=== PATIENT | male | born 1970 | race Caucasian/White ===

== ENCOUNTER 2021-12-24 18:55 | Inpatient (IN) | payer MEDICAID ==
[~2021-12-24] VITALS: Ht 180.3 cm; Wt 89.8 kg
[~2021-12-24 18:55] MED LIST: ACET-2619 GT; AMIO200T66 GT; BACL10TA4 GT; FERR75LI22 GT; KEP500L GT; LANS15EC28 GT; LEVALBUTEROL; LEVO750T75 PO; LORA-476 GT; MEDI30SO GT; MONT10TA35 GT; OLAN15TA1 GT; PRO5 GT; PROC4I SUBQ; PUL.5N IH; ROB1 GT; VITAMIN C GT; lactobacillus GT
[2021-12-24 19:02] VITALS: BP 109/68
[2021-12-24] MEDS ORDERED: NACL 0.9% 2,000 ML IV ONE (19:10)
[2021-12-24] MEDS ORDERED: ZINC100T8 GT (19:29)
[2021-12-24] MEDS ORDERED: NUTR-480 GT (19:29)
[2021-12-24] MEDS ORDERED: [UNRECOGNIZED DRUG - CODE] GT (19:29)
[2021-12-24] MEDS ORDERED: [UNRECOGNIZED DRUG - CODE] GT ×2 (19:39)
[2021-12-24 19:46] LABS: HEMATOCRIT 24.3 % (36-52); HEMOGLOBIN 7.6 g/dL (12.0-18.0); MEAN CORPUSCULAR HEMOGLOBIN 24 pg (27-31); MEAN CORPUSCULAR HGB CONC 31 g/dL (33-37); MEAN CORPUSCULAR VOLUME 78.4 fL (80-94); PLATELET COUNT (AUTO) 749 K/uL (140-450); RED CELL DISTRIBUTION WIDTH 21.7 % (11.6-13.7)
[2021-12-24] MEDS ORDERED: CEFEPIME 1,000 MG in DEXTROSE 5% 50 ML IV ONE (20:00)
[2021-12-24] MEDS ORDERED: VANCOMYCIN 1,000 MG in DEXTROSE 5% 250 ML IV ONE (20:00)
[2021-12-24 20:04] LABS: WHITE BLOOD COUNT (AUTO) 28.1 K/uL (4.8-10.8)
[2021-12-24 20:33] LABS: ALBUMIN 1.3 g/dL (3.4-5.0); ANION GAP 7.9 (8-16); ASPARTATE AMINOTRANSFERASE 16 U/L (15-37); CARBON DIOXIDE 34.7 mmol/L (21-32); CHLORIDE 100 mmol/L (98-107); CREATININE 0.5 mg/dL (0.6-1.3); GFR ARICAN-AMERICAN 225 mL/min (>90); GLUCOSE 131 mg/dL (74-106); POTASSIUM 3.6 mmol/L (3.5-5.1); SODIUM SERUM 139 mmol/L (136-145); TOTAL BILIRUBIN 0.2 mg/dL (0.0-1.0); UREA NITROGEN, BLOOD 23 mg/dL (7-18)
[2021-12-24] MEDS ORDERED: CEFEPIME 1,000 MG VIAL ONE (20:41)
[2021-12-24] MEDS ORDERED: VANCOMYCIN 1,000 MG VIAL ONE (20:42)
[2021-12-24 20:50] LABS: EOSINOPHILS % (MANUAL) 1 % (0-4); LYMPHOCYTES % (MANUAL) 7 % (20-46); METAMYELOCYTES % 1 % (0-0); MONOCYTES % (MANUAL) 3 % (5-12)
[2021-12-24 20:59] LABS: BILIRUBIN,URINE NEGATIVE (NEGATIVE); BLOOD, URINE TRACE-I (NEGATIVE); COLOR,URINE YELLOW (YELLOW); LEUKOCYTE ESTERASE ,URINE TRACE (NEGATIVE); NITRITE, URINE NEGATIVE (NEGATIVE); PH,URINE 6.5 (5.0-9.0); UGLUCOSE NEGATIVE (NEGATIVE)
[2021-12-24 21:03] LABS: APPEARANCE,URINE HAZY (CLEAR)
[2021-12-24 21:26] LABS: CALCIUM OXALATE CRYSTALS,UR 0-10 /HPF (None Seen); COARSE GRANULAR CASTS,URINE 0-10 /LPF (None Seen); WBC,URINE 0-5 /HPF (0-5); YEAST,URINE Moderate /HPF (None Seen)
[2021-12-24 22:53] VITALS: BP 101/60
[2021-12-24] MEDS ORDERED: POTASSIUM CHLORIDE 10 MEQ TABER PO PRN (23:20)
[2021-12-24] MEDS ORDERED: ZOLPIDEM 5 MG TAB PO PRN (23:20)
[2021-12-24] MEDS ORDERED: ONDANSETRON 4 MG/2 ML VIAL IM/IVP PRN (23:20)
[2021-12-24] MEDS ORDERED: guaiFENesin DM 200/20 MG-10 ML 10 ML UDC PO PRN (23:20)
[2021-12-24] MEDS ORDERED: HYDROcodone/APAP 7.5/325 MG 1 TAB PO PRN (23:20)
[2021-12-24] MEDS ORDERED: DOCUSATE SODIUM 100 MG GELCAP PO PRN (23:20)
[2021-12-24] MEDS ORDERED: ALBUTEROL SULFATE/IPRATROPIU 3 ML SOL IH PRN (23:25)
[2021-12-24] MEDS: DEXT 5% /NACL 0.9% 1,000 ML IV SCH (23:28)
[2021-12-25] MEDS ORDERED: PIPERACILLIN/TAZOBACTAM 3.375 GM VIAL IV ONE ×2 (00:30→05:05)
[2021-12-25] MEDS: PIPERACILLIN/TAZOBACTAM 3.375 GM in DEXTROSE 5% 50 ML IV SCH ×4 (00:36→19:19)
[2021-12-25 01:27] LABS: CHOL/HDL RATIO 2.5 (1-4.5); FREE T4 (FREE THYROXINE) 1.08 ng/dL (0.76-1.46); MAGNESIUM 1.8 mg/dL (1.8-2.4); PHOSPHORUS 4.3 mg/dL (2.5-4.9); THYROID STIMULATING HORMONE 2.46 uIU/mL (0.34-3.74)
[2021-12-25 04:00] VITALS: BP 99/62
[2021-12-25] MEDS: DEXT 5% /NACL 0.9% 1,000 ML IV SCH ×3 (06:45→21:35)
[2021-12-25 08:00] VITALS: BP 102/61
[2021-12-25] MEDS: ALBUTEROL SULFATE/IPRATROPIU 3 ML SOL IH SCH ×2 (08:06→19:16)
[2021-12-25] MEDS: AMIODARONE 200 MG TAB GT SCH (09:06)
[2021-12-25] MEDS: levETIRAcetam 100 MG/ML ORASYR GT SCH ×2 (09:07→20:59)
[2021-12-25] MEDS: PANTOPRAZOLE 40 MG TABEC PO SCH (09:07)
[2021-12-25] MEDS: FERROUS SULFATE 300 MG/5 ML UDC GT SCH ×2 (09:07→20:59)
[2021-12-25] MEDS: MIDODRINE 5 MG TAB GT SCH ×3 (09:07→17:33)
[2021-12-25 09:37] LABS: BASOPHILS # (AUTO) 0.1 K/uL (0.00-0.22); MONOCYTES # (AUTO) 1.2 K/uL (0.8-1.0); PLATELET COUNT (AUTO) 694 K/uL (140-450)
[2021-12-25 09:42] LABS: BASOPHILS % (AUTO) 0.5 % (0.0-2.0); EOSINOPHILS # (AUTO) 0.5 K/uL (0-0.4); EOSINOPHILS % (AUTO) 2.2 % (0.0-4.0); HEMATOCRIT 21.8 % (36-52); LYMPHOCYTES # (AUTO) 2.1 K/uL (2.0-11.5); LYMPHOCYTES % (AUTO) 10.3 % (20.5-51.1); MEAN CORPUSCULAR HEMOGLOBIN 24 pg (27-31); MEAN CORPUSCULAR HGB CONC 31 g/dL (33-37); MEAN CORPUSCULAR VOLUME 78.1 fL (80-94); MONOCYTES % (AUTO) 5.7 % (1.7-9.3); NEUTROPHILS # (AUTO) 16.7 K/uL (1.8-7.7); NEUTROPHILS % (AUTO) 81.3 % (42.2-75.2); RED BLOOD CELL COUNT(AUTO) 2.79 MIL/uL (4.20-6.10); RED CELL DISTRIBUTION WIDTH 21.9 % (11.6-13.7); WHITE BLOOD COUNT (AUTO) 20.5 K/uL (4.8-10.8)
[2021-12-25 10:04] LABS: ALBUMIN 1.1 g/dL (3.4-5.0); ANION GAP 5.6 (8-16); CARBON DIOXIDE 35.7 mmol/L (21-32); CREATININE 0.3 mg/dL (0.6-1.3); POTASSIUM 3.3 mmol/L (3.5-5.1); TOTAL BILIRUBIN 0.2 mg/dL (0.0-1.0)
[2021-12-25 10:47] LABS: HEMOGLOBIN 6.8 g/dL (12.0-18.0)
[2021-12-25] MEDS ORDERED: POTASSIUM CHLORIDE 20% 40 MEQ/15 ML UDC GT PRN (11:00)
[2021-12-25 12:00] VITALS: BP 100/59
[2021-12-25 16:00] VITALS: BP 103/57
[2021-12-25 20:00] VITALS: BP 100/60
[2021-12-25] MEDS: MONTELUKAST SODIUM 10 MG TAB GT SCH (21:00)
[2021-12-25 21:10] LABS: BASOPHILS # (AUTO) 0.1 K/uL (0.00-0.22); BASOPHILS % (AUTO) 0.6 % (0.0-2.0); EOSINOPHILS # (AUTO) 0.4 K/uL (0-0.4); EOSINOPHILS % (AUTO) 2.1 % (0.0-4.0); HEMATOCRIT 25.3 % (36-52); LYMPHOCYTES # (AUTO) 1.6 K/uL (2.0-11.5); LYMPHOCYTES % (AUTO) 9.2 % (20.5-51.1); MEAN CORPUSCULAR HEMOGLOBIN 25 pg (27-31); MEAN CORPUSCULAR HGB CONC 32 g/dL (33-37); MEAN CORPUSCULAR VOLUME 79.6 fL (80-94); NEUTROPHILS # (AUTO) 14.1 K/uL (1.8-7.7); NEUTROPHILS % (AUTO) 82.1 % (42.2-75.2); PLATELET COUNT (AUTO) 701 K/uL (140-450); RED BLOOD CELL COUNT(AUTO) 3.18 MIL/uL (4.20-6.10); RED CELL DISTRIBUTION WIDTH 21.6 % (11.6-13.7); WHITE BLOOD COUNT (AUTO) 17.2 K/uL (4.8-10.8)
[2021-12-26] VITALS: BP 111/65
[2021-12-26] MEDS: PIPERACILLIN/TAZOBACTAM 3.375 GM in DEXTROSE 5% 50 ML IV SCH ×5 (00:30→23:56)
[2021-12-26] MEDS: DEXT 5% /NACL 0.9% 1,000 ML IV SCH ×3 (02:26→19:50)
[2021-12-26 04:00] VITALS: BP 100/60
[2021-12-26] MEDS: LORazepam 1 MG TAB GT PRN ×2 (05:09→17:29)
[2021-12-26 06:55] LABS: ANION GAP 7.3 (8-16); CARBON DIOXIDE 32.3 mmol/L (21-32); CREATININE 0.4 mg/dL (0.6-1.3); POTASSIUM 3.6 mmol/L (3.5-5.1)
[2021-12-26 07:28] LABS: BASOPHILS # (AUTO) 0.1 K/uL (0.00-0.22); BASOPHILS % (AUTO) 0.8 % (0.0-2.0); EOSINOPHILS # (AUTO) 0.3 K/uL (0-0.4); EOSINOPHILS % (AUTO) 2.1 % (0.0-4.0); HEMATOCRIT 24.3 % (36-52); HEMOGLOBIN 7.7 g/dL (12.0-18.0); LYMPHOCYTES % (AUTO) 12.9 % (20.5-51.1); MEAN CORPUSCULAR HEMOGLOBIN 26 pg (27-31); MEAN CORPUSCULAR HGB CONC 32 g/dL (33-37); MEAN CORPUSCULAR VOLUME 80.8 fL (80-94); MONOCYTES % (AUTO) 6.4 % (1.7-9.3); NEUTROPHILS # (AUTO) 12.1 K/uL (1.8-7.7); NEUTROPHILS % (AUTO) 77.8 % (42.2-75.2); PLATELET COUNT (AUTO) 685 K/uL (140-450); RED BLOOD CELL COUNT(AUTO) 3.01 MIL/uL (4.20-6.10); RED CELL DISTRIBUTION WIDTH 22.4 % (11.6-13.7); WHITE BLOOD COUNT (AUTO) 15.5 K/uL (4.8-10.8)
[2021-12-26 08:00] VITALS: BP 109/63
[2021-12-26] MEDS: levETIRAcetam 100 MG/ML ORASYR GT SCH ×2 (09:02→21:17)
[2021-12-26] MEDS: FERROUS SULFATE 300 MG/5 ML UDC GT SCH ×2 (09:02→21:17)
[2021-12-26] MEDS: AMIODARONE 200 MG TAB GT SCH (09:03)
[2021-12-26] MEDS: MIDODRINE 5 MG TAB GT SCH ×3 (09:03→17:17)
[2021-12-26] MEDS: PANTOPRAZOLE 40 MG TABEC PO SCH (09:03)
[2021-12-26] MEDS ORDERED: VANCOMYCIN PER PHARMACY MC PRN (10:30)
[2021-12-26] MEDS ORDERED: ALGINATE DRESSING MC PRN (11:30)
[2021-12-26] MEDS ORDERED: FOAM DRESSING TP PRN (11:30)
[2021-12-26 12:00] VITALS: BP 105/68
[2021-12-26] MEDS: HYDRAGUARD CREAM TP SCH (12:30)
[2021-12-26] MEDS: ALBUTEROL SULFATE/IPRATROPIU 3 ML SOL IH SCH ×3 (13:00→23:54)
[2021-12-26] MEDS: VANCOMYCIN 1,000 MG in DEXTROSE 5% 250 ML IV SCH ×2 (13:22→21:18)
[2021-12-26 16:00] VITALS: BP 101/64
[2021-12-26 20:00] VITALS: BP 96/60
[2021-12-26] MEDS: MONTELUKAST SODIUM 10 MG TAB GT SCH (21:18)
[2021-12-26] MEDS: DEXT 5% / NACL 0.9% 1,000 ML IV SCH (22:31)
[2021-12-27] VITALS: BP 103/43
[2021-12-27] MEDS: HYDRAGUARD CREAM TP SCH ×2 (00:14→12:57)
[2021-12-27 04:00] VITALS: BP 100/48
[2021-12-27] MEDS: VANCOMYCIN 1,000 MG in DEXTROSE 5% 250 ML IV SCH (04:29)
[2021-12-27] MEDS: DEXT 5% / NACL 0.9% 1,000 ML IV SCH (04:53)
[2021-12-27] MEDS: PIPERACILLIN/TAZOBACTAM 3.375 GM in DEXTROSE 5% 50 ML IV SCH ×4 (06:16→23:34)
[2021-12-27 06:56] LABS: BASOPHILS # (AUTO) 0.1 K/uL (0.00-0.22); BASOPHILS % (AUTO) 0.8 % (0.0-2.0); EOSINOPHILS # (AUTO) 0.8 K/uL (0-0.4); EOSINOPHILS % (AUTO) 5.9 % (0.0-4.0); HEMATOCRIT 22.9 % (36-52); HEMOGLOBIN 7.3 g/dL (12.0-18.0); LYMPHOCYTES # (AUTO) 1.7 K/uL (2.0-11.5); LYMPHOCYTES % (AUTO) 13.2 % (20.5-51.1); MEAN CORPUSCULAR HEMOGLOBIN 26 pg (27-31); MEAN CORPUSCULAR HGB CONC 32 g/dL (33-37); MEAN CORPUSCULAR VOLUME 80.4 fL (80-94); MONOCYTES # (AUTO) 0.8 K/uL (0.8-1.0); MONOCYTES % (AUTO) 6.5 % (1.7-9.3); NEUTROPHILS # (AUTO) 9.4 K/uL (1.8-7.7); NEUTROPHILS % (AUTO) 73.6 % (42.2-75.2); PLATELET COUNT (AUTO) 648 K/uL (140-450); RED BLOOD CELL COUNT(AUTO) 2.85 MIL/uL (4.20-6.10); RED CELL DISTRIBUTION WIDTH 22.3 % (11.6-13.7); WHITE BLOOD COUNT (AUTO) 12.8 K/uL (4.8-10.8)
[2021-12-27 07:07] LABS: ANION GAP 5.8 (8-16); CARBON DIOXIDE 33.9 mmol/L (21-32); CREATININE 0.3 mg/dL (0.6-1.3); POTASSIUM 3.7 mmol/L (3.5-5.1)
[2021-12-27] MEDS: ALBUTEROL SULFATE/IPRATROPIU 3 ML SOL IH SCH ×3 (07:50→19:14)
[2021-12-27 08:00] VITALS: BP 94/53
[2021-12-27] MEDS: FERROUS SULFATE 300 MG/5 ML UDC GT SCH ×2 (09:22→20:31)
[2021-12-27] MEDS: PANTOPRAZOLE 40 MG TABEC PO SCH (09:23)
[2021-12-27] MEDS: MIDODRINE 5 MG TAB GT SCH ×3 (09:23→17:28)
[2021-12-27] MEDS: levETIRAcetam 100 MG/ML ORASYR GT SCH ×2 (09:23→20:32)
[2021-12-27] MEDS: AMIODARONE 200 MG TAB GT SCH (09:29)
[2021-12-27] MEDS ORDERED: FUROSEMIDE 20 MG/2 ML VIAL IVP SCH (10:30)
[2021-12-27 12:00] VITALS: BP 109/57
[2021-12-27] MEDS: LORazepam 1 MG TAB GT PRN (14:23)
[2021-12-27 16:00] VITALS: BP 102/60
[2021-12-27] MEDS: FLUCONAZOLE 100 MG/NS PREMIX 50 ML IV SCH (17:28)
[2021-12-27 20:00] VITALS: BP 109/55
[2021-12-27] MEDS: MONTELUKAST SODIUM 10 MG TAB GT SCH (20:32)
[2021-12-27] MEDS: VANCOMYCIN HCL 1.25 GM in DEXTROSE 5% 250 ML IV SCH (20:33)
[2021-12-27] MEDS: ACETAMINOPHEN 325 MG TAB PO PRN (20:34)
[2021-12-28] VITALS (9 sets, daily range): BP systolic 100–119; BP diastolic 60–77
[2021-12-28] MEDS: HYDRAGUARD CREAM TP SCH ×2 (00:19→12:56)
[2021-12-28] MEDS: PIPERACILLIN/TAZOBACTAM 3.375 GM in DEXTROSE 5% 50 ML IV SCH (05:30)
[2021-12-28] MEDS: ACETAMINOPHEN 325 MG TAB PO PRN ×2 (06:04→15:22)
[2021-12-28 06:58] LABS: ANION GAP 7.6 (8-16); CARBON DIOXIDE 36.1 mmol/L (21-32); CREATININE 0.4 mg/dL (0.6-1.3); POTASSIUM 3.7 mmol/L (3.5-5.1)
[2021-12-28 07:16] LABS: BASOPHILS # (AUTO) 0.1 K/uL (0.00-0.22); BASOPHILS % (AUTO) 0.6 % (0.0-2.0); EOSINOPHILS # (AUTO) 0.3 K/uL (0-0.4); EOSINOPHILS % (AUTO) 1.5 % (0.0-4.0); HEMATOCRIT 24.2 % (36-52); HEMOGLOBIN 7.6 g/dL (12.0-18.0); LYMPHOCYTES # (AUTO) 2.1 K/uL (2.0-11.5); MEAN CORPUSCULAR HEMOGLOBIN 25 pg (27-31); MEAN CORPUSCULAR HGB CONC 32 g/dL (33-37); MEAN CORPUSCULAR VOLUME 79.8 fL (80-94); MONOCYTES # (AUTO) 1.1 K/uL (0.8-1.0); MONOCYTES % (AUTO) 5.3 % (1.7-9.3); NEUTROPHILS # (AUTO) 17.4 K/uL (1.8-7.7); NEUTROPHILS % (AUTO) 82.6 % (42.2-75.2); PLATELET COUNT (AUTO) 686 K/uL (140-450); RED BLOOD CELL COUNT(AUTO) 3.03 MIL/uL (4.20-6.10); RED CELL DISTRIBUTION WIDTH 22.3 % (11.6-13.7)
[2021-12-28] MEDS: ALBUTEROL SULFATE/IPRATROPIU 3 ML SOL IH SCH ×3 (08:00→19:30)
[2021-12-28] MEDS: levETIRAcetam 100 MG/ML ORASYR GT SCH ×2 (08:18→20:31)
[2021-12-28] MEDS: VANCOMYCIN HCL 1.25 GM in DEXTROSE 5% 250 ML IV SCH (08:18)
[2021-12-28] MEDS: FERROUS SULFATE 300 MG/5 ML UDC GT SCH ×2 (08:18→20:30)
[2021-12-28] MEDS: AMIODARONE 200 MG TAB GT SCH (08:19)
[2021-12-28] MEDS: MIDODRINE 5 MG TAB GT SCH ×3 (08:19→18:15)
[2021-12-28] MEDS: PANTOPRAZOLE 40 MG TABEC PO SCH (08:20)
[2021-12-28] MEDS ORDERED: AMIKACIN PER PHARMACY MC PRN (09:20)
[2021-12-28] MEDS ORDERED: AMIKACIN 1,000 MG in DEXTROSE 5% 100 ML IV SCH (11:00)
[2021-12-28] MEDS: LORazepam 1 MG TAB GT PRN (12:56)
[2021-12-28] MEDS: FLUCONAZOLE 100 MG/NS PREMIX 50 ML IV SCH (18:16)
[2021-12-28] MEDS: MONTELUKAST SODIUM 10 MG TAB GT SCH (20:31)
[2021-12-29] VITALS (8 sets, daily range): BP systolic 103–110; BP diastolic 65–72
[2021-12-29] MEDS: HYDRAGUARD CREAM TP SCH ×2 (01:38→13:00)
[2021-12-29 06:49] LABS: BASOPHILS # (AUTO) 0.1 K/uL (0.00-0.22); BASOPHILS % (AUTO) 0.7 % (0.0-2.0); EOSINOPHILS # (AUTO) 0.7 K/uL (0-0.4); HEMATOCRIT 24.7 % (36-52); HEMOGLOBIN 7.8 g/dL (12.0-18.0); LYMPHOCYTES % (AUTO) 11.5 % (20.5-51.1); MEAN CORPUSCULAR HEMOGLOBIN 25 pg (27-31); MEAN CORPUSCULAR HGB CONC 31 g/dL (33-37); MEAN CORPUSCULAR VOLUME 79.3 fL (80-94); MONOCYTES # (AUTO) 0.9 K/uL (0.8-1.0); MONOCYTES % (AUTO) 5.2 % (1.7-9.3); NEUTROPHILS # (AUTO) 13.5 K/uL (1.8-7.7); NEUTROPHILS % (AUTO) 78.6 % (42.2-75.2); PLATELET COUNT (AUTO) 708 K/uL (140-450); RED BLOOD CELL COUNT(AUTO) 3.12 MIL/uL (4.20-6.10); RED CELL DISTRIBUTION WIDTH 22.5 % (11.6-13.7); WHITE BLOOD COUNT (AUTO) 17.2 K/uL (4.8-10.8)
[2021-12-29 06:56] LABS: ANION GAP 6.9 (8-16); CARBON DIOXIDE 36.9 mmol/L (21-32); CREATININE 0.5 mg/dL (0.6-1.3); POTASSIUM 3.8 mmol/L (3.5-5.1)
[2021-12-29] MEDS: ALBUTEROL SULFATE/IPRATROPIU 3 ML SOL IH SCH ×2 (08:10→13:55)
[2021-12-29] MEDS: AMIODARONE 200 MG TAB GT SCH (09:43)
[2021-12-29] MEDS: MIDODRINE 5 MG TAB GT SCH ×3 (09:43→16:32)
[2021-12-29] MEDS: levETIRAcetam 100 MG/ML ORASYR GT SCH ×2 (09:43→20:47)
[2021-12-29] MEDS: FERROUS SULFATE 300 MG/5 ML UDC GT SCH ×2 (09:43→20:47)
[2021-12-29] MEDS ORDERED: ALBUMIN HUMAN 25% 50 ML IV SCH (10:00)
[2021-12-29] MEDS: PANTOPRAZOLE 40 MG INJ VIAL IVP SCH (11:29)
[2021-12-29] MEDS ORDERED: AMIKACIN 1,000 MG in DEXTROSE 5% 100 ML IV SCH (12:00)
[2021-12-29] MEDS: FOAM DRESSING TP SCH (13:00)
[2021-12-29] MEDS: ALGINATE DRESSING MC SCH (13:00)
[2021-12-29] MEDS: FLUCONAZOLE 100 MG/NS PREMIX 50 ML IV SCH (16:32)
[2021-12-29] MEDS: MONTELUKAST SODIUM 10 MG TAB GT SCH (20:47)
[2021-12-30] VITALS: BP 114/68
[2021-12-30] MEDS: HYDRAGUARD CREAM TP SCH ×2 (01:00→13:20)
[2021-12-30 04:00] VITALS: BP 109/66
[2021-12-30] MEDS: ALBUTEROL SULFATE/IPRATROPIU 3 ML SOL IH SCH ×4 (05:22→19:45)
[2021-12-30 06:34] LABS: BASOPHILS # (AUTO) 0.1 K/uL (0.00-0.22); BASOPHILS % (AUTO) 0.8 % (0.0-2.0); EOSINOPHILS # (AUTO) 1.1 K/uL (0-0.4); EOSINOPHILS % (AUTO) 7.6 % (0.0-4.0); HEMATOCRIT 25.9 % (36-52); HEMOGLOBIN 8.3 g/dL (12.0-18.0); LYMPHOCYTES # (AUTO) 2.2 K/uL (2.0-11.5); LYMPHOCYTES % (AUTO) 15.7 % (20.5-51.1); MEAN CORPUSCULAR HEMOGLOBIN 25 pg (27-31); MEAN CORPUSCULAR HGB CONC 32 g/dL (33-37); MEAN CORPUSCULAR VOLUME 79.3 fL (80-94); MONOCYTES # (AUTO) 0.9 K/uL (0.8-1.0); MONOCYTES % (AUTO) 6.3 % (1.7-9.3); NEUTROPHILS # (AUTO) 9.8 K/uL (1.8-7.7); NEUTROPHILS % (AUTO) 69.6 % (42.2-75.2); PLATELET COUNT (AUTO) 663 K/uL (140-450); RED BLOOD CELL COUNT(AUTO) 3.27 MIL/uL (4.20-6.10); RED CELL DISTRIBUTION WIDTH 22.8 % (11.6-13.7); WHITE BLOOD COUNT (AUTO) 14.1 K/uL (4.8-10.8)
[2021-12-30 06:40] LABS: ANION GAP 6.1 (8-16); CARBON DIOXIDE 37.2 mmol/L (21-32); CREATININE 0.5 mg/dL (0.6-1.3); POTASSIUM 4.3 mmol/L (3.5-5.1)
[2021-12-30 08:00] VITALS: BP 106/65
[2021-12-30] MEDS: FERROUS SULFATE 300 MG/5 ML UDC GT SCH ×2 (10:04→22:06)
[2021-12-30] MEDS: levETIRAcetam 100 MG/ML ORASYR GT SCH ×2 (10:04→22:07)
[2021-12-30] MEDS: PANTOPRAZOLE 40 MG INJ VIAL IVP SCH (10:05)
[2021-12-30] MEDS: MIDODRINE 5 MG TAB GT SCH ×3 (10:06→17:27)
[2021-12-30] MEDS: AMIODARONE 200 MG TAB GT SCH (10:07)
[2021-12-30 12:00] VITALS: BP 106/71
[2021-12-30] MEDS: AMIKACIN 1,000 MG in DEXTROSE 5% 100 ML IV SCH (12:51)
[2021-12-30 16:00] VITALS: BP 108/62
[2021-12-30] MEDS: FLUCONAZOLE 100 MG/NS PREMIX 50 ML IV SCH (17:27)
[2021-12-30 20:00] VITALS: BP 113/67
[2021-12-30] MEDS: MONTELUKAST SODIUM 10 MG TAB GT SCH (22:07)
[2021-12-30] MEDS: LORazepam 1 MG TAB GT PRN (23:30)
[2021-12-31] VITALS (9 sets, daily range): BP systolic 100–116; BP diastolic 60–72
[2021-12-31] MEDS: HYDRAGUARD CREAM TP SCH ×2 (01:44→13:05)
[2021-12-31] MEDS: ACETAMINOPHEN 325 MG TAB PO PRN (05:27)
[2021-12-31] MEDS ORDERED: ACETAMINOPHEN 100 ML IV PRN (06:45)
[2021-12-31 07:23] LABS: ANION GAP 8.1 (8-16); CARBON DIOXIDE 36.3 mmol/L (21-32); CREATININE 0.6 mg/dL (0.6-1.3); POTASSIUM 4.4 mmol/L (3.5-5.1)
[2021-12-31 07:31] LABS: HEMATOCRIT 26.4 % (36-52); HEMOGLOBIN 8.4 g/dL (12.0-18.0); MEAN CORPUSCULAR HEMOGLOBIN 25 pg (27-31); MEAN CORPUSCULAR HGB CONC 32 g/dL (33-37); PLATELET COUNT (AUTO) 682 K/uL (140-450); RED BLOOD CELL COUNT(AUTO) 3.34 MIL/uL (4.20-6.10); RED CELL DISTRIBUTION WIDTH 22.9 % (11.6-13.7)
[2021-12-31 08:07] LABS: WHITE BLOOD COUNT (AUTO) 30.7 K/uL (4.8-10.8)
[2021-12-31 08:08] LABS: LYMPHOCYTES % (MANUAL) 10 % (20-46); MONOCYTES % (MANUAL) 5 % (5-12)
[2021-12-31] MEDS: ALBUTEROL SULFATE/IPRATROPIU 3 ML SOL IH SCH ×2 (08:43→14:25)
[2021-12-31] MEDS ORDERED: VANCOMYCIN PER PHARMACY MC PRN (09:05)
[2021-12-31] MEDS: levETIRAcetam 100 MG/ML ORASYR GT SCH ×2 (10:31→21:20)
[2021-12-31] MEDS: FERROUS SULFATE 300 MG/5 ML UDC GT SCH ×2 (10:32→21:20)
[2021-12-31] MEDS: PANTOPRAZOLE 40 MG INJ VIAL IVP SCH (10:34)
[2021-12-31] MEDS: MIDODRINE 5 MG TAB GT SCH ×3 (10:34→17:19)
[2021-12-31] MEDS: AMIODARONE 200 MG TAB GT SCH (10:35)
[2021-12-31] MEDS: VANCOMYCIN HCL 1.25 GM in DEXTROSE 5% 250 ML IV SCH ×2 (10:44→17:23)
[2021-12-31] MEDS ORDERED: VANCOMYCIN 500 MG VIAL PO SCH (12:00)
[2021-12-31] MEDS: AMIKACIN 1,000 MG in DEXTROSE 5% 100 ML IV SCH (12:00)
[2021-12-31 12:39] LABS: APPEARANCE,URINE CLEAR (CLEAR); BILIRUBIN,URINE NEGATIVE (NEGATIVE); BLOOD, URINE 1+ (NEGATIVE); COLOR,URINE YELLOW (YELLOW); LEUKOCYTE ESTERASE ,URINE NEGATIVE (NEGATIVE); NITRITE, URINE NEGATIVE (NEGATIVE); UGLUCOSE NEGATIVE (NEGATIVE)
[2021-12-31 12:51] LABS: OTHER CASTS, URINE None Seen /LPF (None Seen); WBC,URINE 0-5 /HPF (0-5)
[2021-12-31] MEDS: VANCOMYCIN HCL 25 MG/ML SOLN PO SCH ×2 (13:02→17:19)
[2021-12-31] MEDS: FLUCONAZOLE 100 MG/NS PREMIX 50 ML IV SCH (17:20)
[2021-12-31] MEDS: MONTELUKAST SODIUM 10 MG TAB GT SCH (21:20)
[2022-01-01] VITALS: BP 104/82
[2022-01-01] MEDS: HYDRAGUARD CREAM TP SCH ×2 (01:00→16:04)
[2022-01-01] MEDS: VANCOMYCIN HCL 1.25 GM in DEXTROSE 5% 250 ML IV SCH (02:00)
[2022-01-01 04:00] VITALS: BP 106/81
[2022-01-01] MEDS: VANCOMYCIN HCL 25 MG/ML SOLN PO SCH ×5 (06:14→23:48)
[2022-01-01] MEDS: ALBUTEROL SULFATE/IPRATROPIU 3 ML SOL IH SCH ×3 (07:00→19:00)
[2022-01-01 08:00] VITALS: BP 107/65
[2022-01-01 09:51] LABS: ANION GAP 6.3 (8-16); CARBON DIOXIDE 35.7 mmol/L (21-32); CREATININE 0.4 mg/dL (0.6-1.3)
[2022-01-01] MEDS: levETIRAcetam 100 MG/ML ORASYR GT SCH ×2 (11:08→20:48)
[2022-01-01] MEDS: FERROUS SULFATE 300 MG/5 ML UDC GT SCH ×2 (11:09→20:48)
[2022-01-01] MEDS: PANTOPRAZOLE 40 MG INJ VIAL IVP SCH (11:10)
[2022-01-01] MEDS: AMIODARONE 200 MG TAB GT SCH (11:10)
[2022-01-01] MEDS: MIDODRINE 5 MG TAB GT SCH ×3 (11:10→18:54)
[2022-01-01 12:00] VITALS: BP 105/62
[2022-01-01 14:09] LABS: BASOPHILS # (AUTO) 0.2 K/uL (0.00-0.22); EOSINOPHILS % (AUTO) 5.1 % (0.0-4.0); HEMOGLOBIN 7.8 g/dL (12.0-18.0); LYMPHOCYTES # (AUTO) 2.6 K/uL (2.0-11.5); MEAN CORPUSCULAR HEMOGLOBIN 25 pg (27-31); MEAN CORPUSCULAR HGB CONC 32 g/dL (33-37); MEAN CORPUSCULAR VOLUME 78.7 fL (80-94); MONOCYTES % (AUTO) 5.3 % (1.7-9.3); NEUTROPHILS # (AUTO) 14.1 K/uL (1.8-7.7); NEUTROPHILS % (AUTO) 74.6 % (42.2-75.2); PLATELET COUNT (AUTO) 542 K/uL (140-450); RED BLOOD CELL COUNT(AUTO) 3.11 MIL/uL (4.20-6.10); RED CELL DISTRIBUTION WIDTH 22.7 % (11.6-13.7); WHITE BLOOD COUNT (AUTO) 18.9 K/uL (4.8-10.8)
[2022-01-01 16:00] VITALS: BP 106/63
[2022-01-01] MEDS: ALGINATE DRESSING MC SCH (16:04)
[2022-01-01] MEDS: AMIKACIN 1,000 MG in DEXTROSE 5% 100 ML IV SCH (16:06)
[2022-01-01] MEDS: FOAM DRESSING TP SCH (16:07)
[2022-01-01] MEDS: FLUCONAZOLE 100 MG/NS PREMIX 50 ML IV SCH (18:56)
[2022-01-01] MEDS: ACETAMINOPHEN 325 MG TAB PO PRN (19:03)
[2022-01-01 20:00] VITALS: BP 102/61
[2022-01-01] MEDS: MONTELUKAST SODIUM 10 MG TAB GT SCH (20:48)
[2022-01-02] VITALS: BP 100/61
[2022-01-02] MEDS: HYDRAGUARD CREAM TP SCH ×2 (00:03→13:08)
[2022-01-02 04:00] VITALS: BP 99/60
[2022-01-02] MEDS: VANCOMYCIN HCL 25 MG/ML SOLN PO SCH ×3 (05:33→17:54)
[2022-01-02 06:51] LABS: BASOPHILS # (AUTO) 0.2 K/uL (0.00-0.22); BASOPHILS % (AUTO) 1.1 % (0.0-2.0); EOSINOPHILS # (AUTO) 0.9 K/uL (0-0.4); EOSINOPHILS % (AUTO) 6.1 % (0.0-4.0); HEMATOCRIT 25.8 % (36-52); HEMOGLOBIN 8.1 g/dL (12.0-18.0); LYMPHOCYTES # (AUTO) 2.3 K/uL (2.0-11.5); LYMPHOCYTES % (AUTO) 15.3 % (20.5-51.1); MEAN CORPUSCULAR HEMOGLOBIN 25 pg (27-31); MEAN CORPUSCULAR HGB CONC 31 g/dL (33-37); MEAN CORPUSCULAR VOLUME 78.9 fL (80-94); MONOCYTES # (AUTO) 0.8 K/uL (0.8-1.0); MONOCYTES % (AUTO) 5.6 % (1.7-9.3); NEUTROPHILS # (AUTO) 10.7 K/uL (1.8-7.7); NEUTROPHILS % (AUTO) 71.9 % (42.2-75.2); PLATELET COUNT (AUTO) 523 K/uL (140-450); RED BLOOD CELL COUNT(AUTO) 3.27 MIL/uL (4.20-6.10); RED CELL DISTRIBUTION WIDTH 22.4 % (11.6-13.7); WHITE BLOOD COUNT (AUTO) 14.9 K/uL (4.8-10.8)
[2022-01-02 07:12] LABS: ANION GAP 9.4 (8-16); CARBON DIOXIDE 34.9 mmol/L (21-32); CREATININE 0.5 mg/dL (0.6-1.3); POTASSIUM 4.3 mmol/L (3.5-5.1)
[2022-01-02] MEDS: ALBUTEROL SULFATE/IPRATROPIU 3 ML SOL IH SCH ×3 (07:44→19:55)
[2022-01-02 08:00] VITALS: BP 104/66
[2022-01-02] MEDS: PANTOPRAZOLE 40 MG INJ VIAL IVP SCH (09:18)
[2022-01-02] MEDS: FERROUS SULFATE 300 MG/5 ML UDC GT SCH ×2 (09:19→21:58)
[2022-01-02] MEDS: levETIRAcetam 100 MG/ML ORASYR GT SCH ×2 (09:19→21:58)
[2022-01-02] MEDS: AMIODARONE 200 MG TAB GT SCH (09:19)
[2022-01-02] MEDS: MIDODRINE 5 MG TAB GT SCH ×3 (09:19→17:54)
[2022-01-02] MEDS: VANCOMYCIN 1,000 MG in DEXTROSE 5% 250 ML IV SCH ×2 (09:20→21:59)
[2022-01-02 12:00] VITALS: BP 109/68
[2022-01-02] MEDS: AMIKACIN 1,000 MG in DEXTROSE 5% 100 ML IV SCH (12:54)
[2022-01-02 16:00] VITALS: BP 107/66
[2022-01-02] MEDS: FLUCONAZOLE 100 MG/NS PREMIX 50 ML IV SCH (17:54)
[2022-01-02 20:00] VITALS: BP 109/64
[2022-01-02] MEDS: MONTELUKAST SODIUM 10 MG TAB GT SCH (21:58)
[2022-01-03] VITALS: BP 100/60
[2022-01-03] MEDS: VANCOMYCIN HCL 25 MG/ML SOLN PO SCH ×4 (01:00→18:12)
[2022-01-03] MEDS: HYDRAGUARD CREAM TP SCH ×2 (01:00→13:07)
[2022-01-03] MEDS: ACETAMINOPHEN 325 MG TAB PO PRN ×2 (01:09→09:02)
[2022-01-03 04:00] VITALS: BP 106/57
[2022-01-03] MEDS: ALBUTEROL SULFATE/IPRATROPIU 3 ML SOL IH SCH ×3 (07:21→19:15)
[2022-01-03 08:00] VITALS: BP 98/51
[2022-01-03 08:21] LABS: ANION GAP 10.2 (8-16); BASOPHILS # (AUTO) 0.1 K/uL (0.00-0.22); BASOPHILS % (AUTO) 0.5 % (0.0-2.0); CARBON DIOXIDE 32.3 mmol/L (21-32); CREATININE 0.6 mg/dL (0.6-1.3); EOSINOPHILS # (AUTO) 0.8 K/uL (0-0.4); EOSINOPHILS % (AUTO) 2.9 % (0.0-4.0); HEMATOCRIT 25.6 % (36-52); HEMOGLOBIN 8.1 g/dL (12.0-18.0); LYMPHOCYTES # (AUTO) 2.7 K/uL (2.0-11.5); LYMPHOCYTES % (AUTO) 9.4 % (20.5-51.1); MEAN CORPUSCULAR HEMOGLOBIN 25 pg (27-31); MEAN CORPUSCULAR HGB CONC 32 g/dL (33-37); MEAN CORPUSCULAR VOLUME 78.6 fL (80-94); MONOCYTES # (AUTO) 1.2 K/uL (0.8-1.0); MONOCYTES % (AUTO) 4.2 % (1.7-9.3); NEUTROPHILS # (AUTO) 23.6 K/uL (1.8-7.7); PLATELET COUNT (AUTO) 536 K/uL (140-450); POTASSIUM 4.5 mmol/L (3.5-5.1); RED BLOOD CELL COUNT(AUTO) 3.25 MIL/uL (4.20-6.10); RED CELL DISTRIBUTION WIDTH 22.7 % (11.6-13.7)
[2022-01-03 08:27] LABS: WHITE BLOOD COUNT (AUTO) 28.4 K/uL (4.8-10.8)
[2022-01-03] MEDS: levETIRAcetam 100 MG/ML ORASYR GT SCH ×2 (09:00→20:32)
[2022-01-03] MEDS: FERROUS SULFATE 300 MG/5 ML UDC GT SCH ×2 (09:01→20:32)
[2022-01-03] MEDS: MIDODRINE 5 MG TAB GT SCH ×3 (09:01→16:37)
[2022-01-03] MEDS: PANTOPRAZOLE 40 MG INJ VIAL IVP SCH (09:01)
[2022-01-03] MEDS: AMIODARONE 200 MG TAB GT SCH (09:01)
[2022-01-03 12:00] VITALS: BP 107/62
[2022-01-03] MEDS: AMIKACIN 1,000 MG in DEXTROSE 5% 100 ML IV SCH (13:07)
[2022-01-03] MEDS: VANCOMYCIN HCL 1.25 GM in DEXTROSE 5% 250 ML IV SCH (15:00)
[2022-01-03 16:00] VITALS: BP 107/57
[2022-01-03 20:00] VITALS: BP 105/61
[2022-01-03] MEDS: MONTELUKAST SODIUM 10 MG TAB GT SCH (20:32)
[2022-01-04] VITALS: BP 109/69
[2022-01-04] MEDS: VANCOMYCIN HCL 25 MG/ML SOLN PO SCH ×4 (00:08→17:51)
[2022-01-04] MEDS: HYDRAGUARD CREAM TP SCH ×2 (01:04→13:05)
[2022-01-04] MEDS ORDERED: LORazepam 2 MG/ML VIAL IVP PRN (02:35)
[2022-01-04 04:00] VITALS: BP 106/66
[2022-01-04 07:12] LABS: BASOPHILS # (AUTO) 0.1 K/uL (0.00-0.22); EOSINOPHILS # (AUTO) 0.5 K/uL (0-0.4); EOSINOPHILS % (AUTO) 3.5 % (0.0-4.0); HEMATOCRIT 25.5 % (36-52); HEMOGLOBIN 8.1 g/dL (12.0-18.0); LYMPHOCYTES # (AUTO) 2.3 K/uL (2.0-11.5); LYMPHOCYTES % (AUTO) 14.5 % (20.5-51.1); MEAN CORPUSCULAR HEMOGLOBIN 25 pg (27-31); MEAN CORPUSCULAR HGB CONC 32 g/dL (33-37); MEAN CORPUSCULAR VOLUME 78.7 fL (80-94); MONOCYTES # (AUTO) 1.2 K/uL (0.8-1.0); MONOCYTES % (AUTO) 7.5 % (1.7-9.3); NEUTROPHILS # (AUTO) 11.5 K/uL (1.8-7.7); NEUTROPHILS % (AUTO) 73.5 % (42.2-75.2); PLATELET COUNT (AUTO) 495 K/uL (140-450); RED BLOOD CELL COUNT(AUTO) 3.24 MIL/uL (4.20-6.10); RED CELL DISTRIBUTION WIDTH 22.5 % (11.6-13.7); WHITE BLOOD COUNT (AUTO) 15.6 K/uL (4.8-10.8)
[2022-01-04 07:24] LABS: ANION GAP 10.1 (8-16); CREATININE 0.6 mg/dL (0.6-1.3); POTASSIUM 4.1 mmol/L (3.5-5.1)
[2022-01-04] MEDS: ALBUTEROL SULFATE/IPRATROPIU 3 ML SOL IH SCH ×3 (07:34→20:55)
[2022-01-04 08:00] VITALS: BP 99/63
[2022-01-04] MEDS: AMIODARONE 200 MG TAB GT SCH (09:02)
[2022-01-04] MEDS: MIDODRINE 5 MG TAB GT SCH ×3 (09:02→17:51)
[2022-01-04] MEDS: levETIRAcetam 100 MG/ML ORASYR GT SCH ×2 (09:03→21:30)
[2022-01-04] MEDS: FERROUS SULFATE 300 MG/5 ML UDC GT SCH ×2 (09:03→21:30)
[2022-01-04] MEDS: PANTOPRAZOLE 40 MG INJ VIAL IVP SCH (09:04)
[2022-01-04] MEDS: VANCOMYCIN HCL 1.25 GM in DEXTROSE 5% 250 ML IV SCH (09:05)
[2022-01-04 12:00] VITALS: BP 109/67
[2022-01-04] MEDS: ACETAMINOPHEN 325 MG TAB PO PRN (12:51)
[2022-01-04] MEDS: ALGINATE DRESSING MC SCH (13:05)
[2022-01-04] MEDS: FOAM DRESSING TP SCH (13:05)
[2022-01-04 16:00] VITALS: BP 107/65
[2022-01-04 20:00] VITALS: BP 96/68
[2022-01-04] MEDS: MONTELUKAST SODIUM 10 MG TAB GT SCH (21:30)
[2022-01-05] VITALS (8 sets, daily range): BP systolic 98–110; BP diastolic 58–68
[2022-01-05] MEDS: VANCOMYCIN HCL 25 MG/ML SOLN PO SCH ×4 (00:23→18:00)
[2022-01-05] MEDS: HYDRAGUARD CREAM TP SCH ×2 (01:01→13:03)
[2022-01-05] MEDS: VANCOMYCIN HCL 1.25 GM in DEXTROSE 5% 250 ML IV SCH (03:01)
[2022-01-05 07:36] LABS: BASOPHILS # (AUTO) 0.2 K/uL (0.00-0.22); EOSINOPHILS # (AUTO) 0.9 K/uL (0-0.4); EOSINOPHILS % (AUTO) 5.6 % (0.0-4.0); HEMATOCRIT 24.9 % (36-52); HEMOGLOBIN 7.8 g/dL (12.0-18.0); LYMPHOCYTES # (AUTO) 2.4 K/uL (2.0-11.5); LYMPHOCYTES % (AUTO) 15.3 % (20.5-51.1); MEAN CORPUSCULAR HEMOGLOBIN 25 pg (27-31); MEAN CORPUSCULAR HGB CONC 31 g/dL (33-37); MEAN CORPUSCULAR VOLUME 80.1 fL (80-94); MONOCYTES # (AUTO) 1.1 K/uL (0.8-1.0); MONOCYTES % (AUTO) 7.3 % (1.7-9.3); NEUTROPHILS % (AUTO) 70.8 % (42.2-75.2); PLATELET COUNT (AUTO) 477 K/uL (140-450); RED BLOOD CELL COUNT(AUTO) 3.11 MIL/uL (4.20-6.10); RED CELL DISTRIBUTION WIDTH 22.4 % (11.6-13.7); WHITE BLOOD COUNT (AUTO) 15.5 K/uL (4.8-10.8)
[2022-01-05] MEDS: ALBUTEROL SULFATE/IPRATROPIU 3 ML SOL IH SCH ×3 (07:49→18:59)
[2022-01-05 08:12] LABS: ANION GAP 10.1 (8-16); CARBON DIOXIDE 31.9 mmol/L (21-32); CREATININE 0.5 mg/dL (0.6-1.3)
[2022-01-05] MEDS: levETIRAcetam 100 MG/ML ORASYR GT SCH (09:25)
[2022-01-05] MEDS: FERROUS SULFATE 300 MG/5 ML UDC GT SCH (09:25)
[2022-01-05] MEDS: MIDODRINE 5 MG TAB GT SCH ×3 (09:25→17:51)
[2022-01-05] MEDS: PANTOPRAZOLE 40 MG INJ VIAL IVP SCH (09:26)
[2022-01-05] MEDS: AMIODARONE 200 MG TAB GT SCH (09:26)
[2022-01-05] MEDS ORDERED: AMIKACIN 1,000 MG in DEXTROSE 5% 100 ML IV SCH ×3 (18:00)
== END 2022-01-05 20:25 | DRG 720 ==
LOC: MED 18:55 → MTU 21:37
PROVIDERS: ADMIT Family Medicine; ATTEND Family Medicine
PROC: 5A1955Z Respiratory Ventilation, Greater than 96 Consecutive Hours (ICD-10-PCS; principal; 2021-12-24)
PROC: 30233N1 Transfusion of Nonautologous Red Blood Cells into Peripheral Vein, Percutaneous Approach (ICD-10-PCS; 2021-12-25)
DX: A41.9 Sepsis, unspecified organism (principal); J96.21 Acute and chronic respiratory failure with hypoxia; J44.0 Chronic obstructive pulmonary disease with (acute) lower respiratory infection; J15.1 Pneumonia due to Pseudomonas; E44.0 Moderate protein-calorie malnutrition; D64.9 Anemia, unspecified; Z20.822 Contact with and (suspected) exposure to COVID-19; N39.0 Urinary tract infection, site not specified; R65.20 Severe sepsis without septic shock; R13.10 Dysphagia, unspecified; I48.0 Paroxysmal atrial fibrillation; G40.909 Epilepsy, unspecified, not intractable, without status epilepticus; D75.839 Thrombocytosis, unspecified; J96.22 Acute and chronic respiratory failure with hypercapnia; E83.51 Hypocalcemia; I10 Essential (primary) hypertension; Z93.0 Tracheostomy status; Z99.11 Dependence on respirator [ventilator] status; Z93.3 Colostomy status; Z86.73 Personal history of transient ischemic attack (TIA), and cerebral infarction without residual deficits; Z79.01 Long term (current) use of anticoagulants; Z68.27 Body mass index [BMI] 27.0-27.9, adult
CPT/HCPCS: 36415; 36430; 36600; 71045; 80048; 80053; 80150; 80202; 81001; 82150; 82803; 83036; 83605; 83690; 83735; 83880; 84100; 84436; 84439; 84443; 84479; 84484; 85025; 85610; 85730; 86886; 86900; 86901; 86920; 87040; 87070; 87081; 87086; 87205; 87635-QW; 89220; 93005; 94002; 94003; 94640; 96361; 96365; 96367; 99291; A4649; C9113; J0278; J0692; J1450; J1940; J2060; J2543; J3370; J7060; P9016; P9046; Q0092